=== PATIENT | female | born 1975 | race Caucasian/White ===

== ENCOUNTER 2020-01-13 19:06 | Emergency (ER) | payer MEDICAID ==
[~2020-01-13] VITALS: Ht 160 cm; Wt 61.2 kg
[2020-01-13 19:06] VITALS: BP 151/80
--- NOTE | 2020-01-13 19:07 | NUR ---
BIBA TAKEN TO BED 4
[2020-01-13 19:15] VITALS: BP 151/80
--- NOTE | 2020-01-13 19:15 | NUR ---
44 Y/O F, CAME IN TO ER WITH C/O BILATERAL LEG PAIN. PT IS TRANSIENT AND REPORTS "TRYING TO GET BACK TO [place], AND BEEN WALKING ALL DAY IN THE RAIN" BILATERAL LEG PAIN DOES NOT RADIATE, 8/10, ACHING AND WORSENS WITH STANDING. NO SIGNS OF INJURY. ALL VSS. SIDERAILS UP, BED LOCKED AND IN LOWEST POSITION. NKA PAST MEDICAL HX: CSECTION
[2020-01-13] MEDS ORDERED: ACETAMINOPHEN EXTRA STRENGTH 500 MG TAB PO ONE (19:25)
--- NOTE | 2020-01-13 20:00 | NUR ---
PT PROVIDED WITH BUS PASS, MEAL, AND HOMELESS RESOURCES. ALL NEEDS MET AT THIS TIME.
--- NOTE | 2020-01-13 20:01 | NUR ---
Patient discharged with v/s stable. Written and verbal after care instructions given and explained. Patient verbalized understanding. Ambulatory with steady gait. All questions addressed prior to discharge. Advised to follow up with PMD. PT IN STABLE CONDITION.
== END 2020-01-13 20:01 | disposition home or self-care (01) ==
LOC: MED 19:06
DX: M79.672 Pain in left foot (principal); M79.671 Pain in right foot; R03.0 Elevated blood-pressure reading, without diagnosis of hypertension; Z98.890 Other specified postprocedural states; Z04.6 Encounter for general psychiatric examination, requested by authority
CPT/HCPCS: 99282; 99283

== ENCOUNTER 2020-09-17 22:22 | Emergency (ER) | payer MEDICAID ==
[~2020-09-17] VITALS: Ht 160 cm; Wt 59.0 kg
[2020-09-17 22:24] VITALS: BP 142/86
[2020-09-17 23:18] LABS: APPEARANCE,URINE CLEAR (CLEAR); BILIRUBIN,URINE 1+ (NEGATIVE); BLOOD, URINE 3+ (NEGATIVE); COLOR,URINE BROWN (YELLOW); LEUKOCYTE ESTERASE ,URINE TRACE (NEGATIVE); NITRITE, URINE POSITIVE (NEGATIVE); UGLUCOSE NEGATIVE (NEGATIVE)
[2020-09-17 23:34] LABS: RBC,URINE 11-20 (MOD) /HPF (0-5); WBC,URINE 0-5 /HPF (0-5)
--- NOTE | 2020-09-17 23:44 | NUR ---
PT AMBULATED TO BED #1. PLACED IN GOWN FOR ULTRASOUND
--- NOTE | 2020-09-18 00:20 | NUR ---
PT BIB SELF FOR C/O 10 VAGINAL PAIN X 2 WEEKS. PT DESCRIBES PAIN SHARP. PT STATES "THE PAIN GOES AWAY AFTER I HAVE A BOWEL MOVEMENT." PT REPORTS CURRENTLY ON HER MENSTRUAL CYCLE. DENIES N/V/D. DENIES ABDOMINAL PAIN. DENIES S/SX OF UTI. MED HX: DENIES ALLERGIES: NKA
[2020-09-18] MEDS ORDERED: IBUP-2213 PO (01:40)
[2020-09-18] MEDS ORDERED: BENZ28CR TP (01:40)
[2020-09-18 01:48] VITALS: BP 124/55
--- NOTE | 2020-09-18 01:48 | NUR ---
Patient discharged with v/s stable. Written and verbal after care instructions given and explained. Patient alert, oriented and verbalized understanding of instructions. Ambulatory with steady gait. All questions addressed prior to discharge. ID band removed. Patient advised to follow up with PMD. Rx of VAGISIL CREAM AND IBUPROFEN given. Patient educated on indication of medication including possible reaction and side effects. Opportunity to ask questions provided and answered.
== END 2020-09-18 01:48 | disposition home or self-care (01) ==
LOC: MED 22:22
DX: N76.0 Acute vaginitis (principal); Z79.899 Other long term (current) drug therapy
CPT/HCPCS: 76856; 81001; 81025; 87086; 99284